=== PATIENT | female | born 1995 | race Hispanic/Latino ===

== ENCOUNTER 2019-12-06 12:39 | Inpatient (IN) | payer MEDICAID, OTHER, SELFPAY ==
[2019-12-06] MEDS ORDERED: hydrALAZINE 20 MG/ML VIAL SLOW IVP PRN ×2 (13:26→20:28)
[2019-12-06] MEDS ORDERED: HYDROcodone/Acetaminophen 5/325 mg Tablet PO PRN ×3 (13:26→20:28)
[2019-12-06] MEDS ORDERED: NS / Oxytocin 40 units/1000ml 1,000 ML IV PRN (13:26)
[2019-12-06] MEDS ORDERED: Lidocaine 1% (PF) 30 ML VIAL SC PRN (13:26)
[2019-12-06] MEDS ORDERED: Misoprostol 200 MCG TAB PR PRN (13:26)
[2019-12-06] MEDS ORDERED: Diphenoxylate HCl/Atropine Tablet PO PRN (13:26)
[2019-12-06] MEDS ORDERED: Butorphanol Tartrate 1 MG/ML VIAL SLOW IVP PRN (13:26)
[2019-12-06] MEDS ORDERED: Promethazine HCl 25 MG/ML VIAL IM PRN (13:26)
[2019-12-06] MEDS ORDERED: Ondansetron PF 4 MG/2 ML Vial IVP PRN ×2 (13:26→20:28)
[2019-12-06] MEDS ORDERED: Methylergonovine 0.2 MG/ML VIAL IM PRN (13:26)
[2019-12-06] MEDS ORDERED: Carboprost 250 MCG/ML AMP IM PRN (13:26)
[2019-12-06] MEDS ORDERED: Ibuprofen 800 MG TAB PO PRN (13:26)
[2019-12-06] MEDS ORDERED: Lactated Ringer's 1,000 ML IV SCH (13:30)
[2019-12-06] MEDS ORDERED: NS w/ Oxytocin 10 units 500 ML IV SCH ×2 (13:30)
[2019-12-06] MEDS ORDERED: NS / Oxytocin 40 units/1000ml 1,000 ML ONE (13:44)
[2019-12-06 13:53] LABS: Mean Corpuscular HGB CONC 34.5 g/dL (32.0-36.0); Mean Corpuscular Hemoglobin 31.2 pg (27.0-31.0); Mean Corpuscular Volume 90.6 fL (78.0-98.0); Platelet Count 157 thou/uL (130-400); RBC Distribution Width 12.8 % (11.5-14.5); Red Blood Cell (RBC) Count 4.49 mill/uL (4.20-5.40); White Blood Cell (WBC) Count 7.3 thou/uL (4.8-10.8)
[2019-12-06 14:00] VITALS: BMI 34.0
[2019-12-06 14:35] LABS: Syphilis Antibody Nonreactive (Nonreactive); Syphilis Antibody Index 0.03 S/CO (<1.00 Non-Reactive)
[2019-12-06 14:36] LABS: HBSAg Index 0.13 S/CO (0-0.99); Hep B Surf Ag Non-Reactive S/CO (NonReactive)
[2019-12-06] MEDS ORDERED: NS w/ Oxytocin 10 units 500 ML ONE (15:26)
[2019-12-06] MEDS ORDERED: Butorphanol Tartrate 1 MG/ML VIAL ONE (15:26)
[2019-12-06] MEDS ORDERED: Milk Of Magnesia 30 ML UDCUP PO PRN (20:28)
[2019-12-06] MEDS ORDERED: Bisacodyl 10 MG SUPP PR PRN (20:28)
[2019-12-06] MEDS ORDERED: NS / Oxytocin 40 units/1000ml 1,000 ML IV SCH (20:28)
[2019-12-06] MEDS ORDERED: Lanolin Ointment 7 GM TUBE TOP PRN (20:28)
[2019-12-06] MEDS ORDERED: Adacel (T-DAP) 0.5 ML SYRINGE IM ONE (20:28)
[2019-12-06] MEDS ORDERED: Ferrous Sulfate 325 MG TAB PO SCH (20:45)
[2019-12-07] MEDS: Ibuprofen 800 MG TAB PO SCH ×2 (00:26→09:50)
[2019-12-07] MEDS: Docusate Calcium (SURFAK) 240 MG CAP PO SCH ×2 (00:33→09:51)
[2019-12-07] MEDS ORDERED: Ferrous Sulfate 325 MG TAB PO SCH (08:00)
[2019-12-07] MEDS ORDERED: Prenatal Vitamin 1 TAB PO SCH (09:00)
[2019-12-07 12:41] LABS: SARS-CoV-2 MS2 Positive; SARS-CoV-2 N Gene Negative; SARS-CoV-2 S Gene Negative; SARS-CoV-2 by NAA Not Detected (NotDetected); SARS-CoV-2 orf1ab Negative
[2019-12-07 17:15] VITALS: BP 123/60; TEMP 97.9
== END 2019-12-07 18:30 | disposition home or self-care (01) | DRG 807 ==
LOC: L&D 12:39 → 3SW 20:24
PROVIDERS: ADMIT Family Medicine; ATTEND Family Medicine
PROC: 10E0XZZ Delivery of Products of Conception, External Approach (ICD-10-PCS; principal; 2019-12-06)
PROC: 10907ZC Drainage of Amniotic Fluid, Therapeutic from Products of Conception, Via Natural or Artificial Opening (ICD-10-PCS; 2019-12-06)
PROC: 3E033VJ Introduction of Other Hormone into Peripheral Vein, Percutaneous Approach (ICD-10-PCS; 2019-12-06)
DX: O80 Encounter for full-term uncomplicated delivery (principal); Z37.0 Single live birth; Z3A.38 38 weeks gestation of pregnancy
CPT/HCPCS: 36415; 85027; 86780; 86850; 86900; 86901; 87340; 87635; J0595; J2590; U0003

== ENCOUNTER → 2020-01-21 | Day surgery (SDC) | payer MEDICAID, OTHER, SELFPAY ==
[~2020-01-21] MED LIST: Labetalol HCl 100 MG/20 ML VIAL ONE; Magnesium Sulfate 4 GM in Sodium Chloride 0.9% 250 ML 250 ML IVPB SCH; Metoclopramide 10 MG/10 ML UDCUP ONE; Metoclopramide HCl 10 MG/2 ML VIAL ONE; diphenhydrAMINE 50 MG/ML VIAL IVP PRN; diphenhydrAMINE 50 MG/ML VIAL ONE
[2020-01-21 22:12] LABS: #Eosinphils 0.2 thou/uL (0.0-0.7); #Lymphocytes 2.2 thou/uL (1.20-3.40); #Monocytes 0.6 thou/uL (0.11-0.59); #Neutrophils 4.9 thou/uL (1.40-6.50); %Basophils 0.5 % (0.0-1.0); %Eosinophils 2.8 % (0.0-10.0); %Neutrophils 60.8 % (42.0-75.0); Hemoglobin 14.7 g/dL (12.0-16.0); Mean Corpuscular HGB CONC 35.1 g/dL (32.0-36.0); Mean Corpuscular Hemoglobin 30.4 pg (27.0-31.0); Mean Corpuscular Volume 86.6 fL (78.0-98.0); Mean Platelet Volume 8.7 fL (7.4-10.4); Platelet Count 165 thou/uL (130-400); RBC Distribution Width 11.7 % (11.5-14.5); Red Blood Cell (RBC) Count 4.84 mill/uL (4.20-5.40)
[2020-01-21 22:37] LABS: Acetaminophen Less than 6.0 mcg/mL (10.0-30.0); Alcohol Less than 10 mg/dL (Less than 10); Salicylate Less than 8.0 mg/dL (15.0-30.0)
[2020-01-21 22:39] LABS: ALT (SGPT) 110 U/L (8-55); AST (SGOT) 47 U/L (5-34); Albumin 4.7 g/dL (3.5-5.0); Alkaline Phosphatase 147 U/L (40-110); Anion Gap 16 mmol/L (10-20); BUN (Urea Nitrogen) 12 mg/dL (7.0-18.7); Bilirubin, Total 0.3 mg/dL (0.2-1.2); Calc. Creatinine Clearance 0 mL/min (70-130); Calcium 9.1 mg/dL (7.8-10.44); Carbon Dioxide 23 mmol/L (22-29); Chloride 105 mmol/L (98-107); Estimated GFR-MDRD Greater than 90; Globulin 3.3 g/dL (2.4-3.5); Glucose 100 mg/dL (70-105); Lipase 31 U/L (8-78); Potassium 4.3 mmol/L (3.5-5.1); Sodium 140 mmol/L (136-145)
[2020-01-22] MEDS: Metoclopramide HCl 10 MG/2 ML VIAL IVP PRN ×2 (01:17→01:53)
[2020-01-22 02:04] LABS: Amphetamine Not Detected (NotDetected); Barbiturates Screen Not Detected (NotDetected); Benzodiazepine Screen Not Detected (NotDetected); Cocaine Metabolite Screen Not Detected (NotDetected); Medtox Control Line Valid? VALID (VALID); Medtox Reader # READER 4; Methadone Not Detected (NotDetected); Methamphetamine Not Detected (NotDetected); Opiate Screen Not Detected (NotDetected); Oxycodone Screen Not Detected (NotDetected); Phencyclidine (PCP) Not Detected (NotDetected); THC/Cannabinoid Screen Not Detected (NotDetected); Tricyclic Screen Not Detected (NotDetected)
--- NOTE | 2020-01-22 05:44 | CT ---
CT HEAD WITHOUT CONTRAST: Date: 01/21/2020 INDICATION: Headache. FINDINGS: The ventricles have normal size and position. No evidence of intracranial mass or hemorrhage. No evid ence of edema or infarct. Paranasal sinuses appear clear as visualized. IMPRESSION: No acute abnormality. POS: AGW
--- NOTE | 2020-01-22 08:24 | PRG ---
DATE OF SERVICE: 01/21/2020 The patient is a 24-year-old female who is about 6 weeks out from an uncomplicated vaginal delivery, presenting to the emergency room with headache, had an initial blood pressure of 163/107 that spontaneously came down to 142/96, 149/100 over the subsequent hour, was diagnosed, had given these findings, and CMP with slightly elevated LFTs. The patient was transferred to and with concerns of preeclampsia. In our conversation, the patient reports that she has been having a bad pulsating left-sided headache with light sensitivity and nausea and vomiting for the last 24 hours. The patient reports that she has not been sleeping well with the new baby at home. She reports that she has attempted pain control with Tylenol without success and has vomited multiple times today. The patient denies a history of migraines. She denies fever. She denies chest pain, shortness of breath. She denies diarrhea or constipation. She denies new rashes. She denies abdominal pain. PAST MEDICAL HISTORY: Negative. PAST SURGICAL HISTORY: Negative. PSYCHIATRIC HISTORY: Negative. SOCIAL HISTORY: Denies drug, alcohol, tobacco use. ALLERGIES: NO KNOWN DRUG ALLERGIES. MEDICATIONS: None. PHYSICAL EXAMINATION: VITAL SIGNS: At the time of my evaluation, blood pressure 109/67, heart rate of 61, respiratory rate of 18. GENERAL: She appears to be in no acute distress. She does point to the left side of her head as the side that is hurting her. She is otherwise alert and oriented, cooperative, and pleasant to interact with. HEENT: Head is normocephalic, atraumatic. LUNGS: Clear to auscultation bilaterally. HEART: Regular rate and rhythm. ABDOMEN: Soft. EXTREMITIES: Nontender, nonedematous. She has no significant DTRs. LABORATORY DATA: In the ER consisted of a white count of 8, hemoglobin of 14.7, hematocrit 41.9, and platelets of 165,000. Sodium of 140, potassium 4.3, creatinine of 0.68, AST of 47, ALT of 110, albumin of 4.7, lipase of 31. Urine protein to creatinine is incalculable due to negative findings on protein and urine creatinine. Urine drug screen is negative. CT scan of the head demonstrated no acute findings performed in the emergency room. The patient was treated with a migraine protocol of Reglan and Benadryl, which almost immediately resolved her symptoms. Within the first hour of treatment, the patient had complete resolution and was stable for discharge home. ASSESSMENT AND PLAN: The patient is a 24-year-old female, nearly 6 weeks for an uncomplicated delivery. She has no medical history. LFTs easily explainable with the persistent nausea and vomiting she had today. Blood pressures except for one severe elevation have been well within normal limits with her blood pressures here with me in the 100s and one teens. The low likelihood of preeclampsia given this how far out she is from delivery, the more likely diagnosis is migraine, which would be supported by associated symptoms of photophobia, nausea and vomiting by her greatly disrupted sleep cycle, sleep pattern with a new baby at home, and with quick response to the migraine protocol. The patient has been discharged home in stable condition. Job ID: [id number]
[2020-01-22 11:09] LABS: SARS-CoV-2 MS2 Positive; SARS-CoV-2 N Gene Negative; SARS-CoV-2 S Gene Negative; SARS-CoV-2 by NAA Not Detected (NotDetected); SARS-CoV-2 orf1ab Negative
== END ==
LOC: ERS 21:34 → L&D/OP 23:20 → SDC 01-22 01:02
PROVIDERS: ATTEND Obstetrics & Gynecology
DX: O99.893 Other specified diseases and conditions complicating puerperium (principal); R51.9 Headache, unspecified; R11.2 Nausea with vomiting, unspecified
CPT/HCPCS: 70450; 80053; 80306; 80307; 82570; 83690; 83735; 84156; 84484; 85025; 87635; 93005; J1200; J2765; J3475; J7050; U0003

== ENCOUNTER 2023-01-15 13:58 | Emergency (ER) | payer OTHER, SELFPAY ==
[2023-01-15] MEDS ORDERED: Iopamidol-370 76% 500 ML MDV (1 ML CHARGE) ONE (14:45)
[2023-01-15] MEDS ORDERED: fentaNYL 50 mcg/mL 1 mL Vial ONE ×2 (15:57→16:22)
[2023-01-15 16:12] LABS: #Eosinphils 0.2 thou/uL (0.0-0.7); #Monocytes 0.9 thou/uL (0.11-0.59); #Neutrophils 5.3 thou/uL (1.40-6.50); %Basophils 0.4 % (0.0-1.0); %Lymphocytes 24.3 % (21.0-51.0); %Neutrophils 62.9 % (42.0-75.0); Hematocrit 39.8 % (36.0-47.0); Hemoglobin 13.9 g/dL (12.0-16.0); Mean Corpuscular HGB CONC 34.9 g/dL (32.0-36.0); Mean Corpuscular Volume 85.8 fl (78.0-98.0); Platelet Count 239 10x3/uL (130-400); RBC Distribution Width 12.6 % (11.5-14.5); Red Blood Cell (RBC) Count 4.64 mill/uL (4.20-5.40); White Blood Cell (WBC) Count 8.5 10x3/uL (4.8-10.8)
[2023-01-15 16:21] LABS: BHCG - Serum Negative (NEGATIVE); Pregs Control Background? CLEAR/WHITE (CLR/WHITE); Pregs Control Bar Appear? YES (CONTROL BAR)
[2023-01-15] MEDS ORDERED: Ondansetron PF 4 MG/2 ML Vial ONE (16:24)
[2023-01-15 16:31] LABS: INR-International Normal Ratio 1.1; PTT 28.7 sec (22.9-36.1); Prothrombin Time 14.1 sec (12.0-14.7)
[2023-01-15 16:34] LABS: ALT (SGPT) 38 U/L (8-55); AST (SGOT) 23 U/L (5-34); Albumin 4.5 g/dL (3.5-5.0); Alkaline Phosphatase 131 U/L (40-110); Anion Gap 11 mmol/L (10-20); BUN (Urea Nitrogen) 9 mg/dL (7.0-18.7); Bilirubin, Total 0.3 mg/dL (0.2-1.2); Calc. Creatinine Clearance 0 mL/min (70-130); Calcium 9.3 mg/dL (7.8-10.44); Carbon Dioxide 25 mmol/L (22-29); Chloride 106 mmol/L (98-107); Estimated GFR 121; Globulin 2.8 g/dL (2.4-3.5); Glucose 117 mg/dL (70-105); Lipase 24 U/L (8-78); Potassium 3.1 mmol/L (3.5-5.1); Protein, Total 7.3 g/dL (6.0-8.3); Sodium 139 mmol/L (136-145)
== END 2023-01-15 18:12 | disposition home or self-care (01) ==
LOC: ERS 13:58
DX: M54.9 Dorsalgia, unspecified (principal); M54.2 Cervicalgia
CPT/HCPCS: 36415; 70450; 71045; 71260; 72125; 74177; 80053; 83605; 83690; 84703; 85025; 85610; 85730; 96374; J2405; J3010; Q9967